=== PATIENT | female | born 1930 | race Caucasian/White ===

== ENCOUNTER 2017-06-10 19:25 | Emergency (ER) | payer MEDICARE, OTHER ==
--- NOTE | 2017-06-10 19:43 | EDM.PDOC ---
ED HPI GENERAL MEDICAL PROBLEM - General Chief Complaint: Cardiovascular Problem Stated Complaint: WEAKNESS Time Seen by Provider: 06/10/17 19:30 Source of Information: Reports: Patient, Family History Limitations: Reports: No Limitations - History of Present Illness INITIAL COMMENTS - FREE TEXT/NARRATIVE: Radha Ricci is a patient of Dr Real, and had her BP meds updated 2 mos ago including Valsartan 160/12.5, Dyazide 25, and Bystolic 5 mg qd. She has not been checking BPs at home, and decided to come to [facility] ED for a BP check: 194/70 , VR 60. She is asx, reports occasional ankle swelling, but no chest pain, SOB, dizziness, lt headiness, palpitations or GI upset. She is reportedly med compliant. - Related Data Allergies Allergy/AdvReac Type Severity Reaction Status Date / Time Penicillins Allergy Hives Verified 06/10/17 19:35 Home Meds: Home Meds Digoxin 250 mcg PO DAILY 06/10/17 [History] Nebivolol [Bystolic] 5 mg PO DAILY 06/10/17 [History] Triamterene/Hydrochlorothiazid [Triamterene-HCTZ 37.5-25 MG] 1 each PO DAILY [History] Valsartan/Hydrochlorothiazide [Valsartan-Hctz 160-12.5 mg Tab] 1 tab PO DAILY [History] Past Medical History Cardiovascular History: Reports: Hypertension ED ROS GENERAL - Review of Systems Review Of Systems: ROS reveals no pertinent complaints other than HPI. ED EXAM, GENERAL - Physical Exam Exam: See Below Exam Limited By: No Limitations General Appearance: Alert, WD/WN, No Apparent Distress Eye Exam: Bilateral Eye: Normal Inspection, PERRL Ears: Normal External Exam Nose: Normal Inspection Throat/Mouth: Normal Inspection Head: Normocephalic Neck: Normal Inspection, Supple Respiratory/Chest: Lungs Clear, Normal Breath Sounds Cardiovascular: Regular Rate, Rhythm, No Edema, No Murmur GI/Abdominal: Normal Bowel Sounds, Soft, Non-Tender, No Organomegaly Back Exam: Normal Inspection Extremities: Normal Inspection, Normal Range of Motion Neurological: Alert, Oriented, CN II-XII Intact, Normal Cognition, No Motor/ Sensory Deficits Psychiatric: Normal Affect, Normal Mood Skin Exam: Warm, Dry, Intact, Normal Color Lymphatic: No Adenopathy Course - Vital Signs Text/Narrative:: Follow up BPs: R 171/86, 174/84; L 167/85; 154/77. She remained asx during ED observation. Last Recorded V/S: Last Vital Signs Temp 36.6 C 06/10/17 19:25 Pulse 95 06/10/17 19:25 Resp 20 06/10/17 19:25 BP 171/86 H 06/10/17 20:00 Pulse Ox 99 06/10/17 19:25 Departure - Departure Time of Disposition: 20:38 Disposition: Home, Self-Care 01 Condition: Good Clinical Impression: Hypertension not at goal - Problem List & Annotations (1) Hypertension not at goal SNOMED Code(s): 53481937 Code(s): I10 - ESSENTIAL (PRIMARY) HYPERTENSION Status: Acute Current Visit: Yes Annotation/Comment:: Follow up with Dr Real this week. She was given BP readings for his office. - Problem List Review Problem List Initiated/Reviewed/Updated: Yes - Assessment/Plan Plan: Obtain BP cuff device for home monitoring.
[2017-06-10 21:26] VITALS: BP 175/88
== END 2017-06-10 20:58 | disposition home or self-care (01) ==
LOC: FB.ED 19:25
DX: I10 Essential (primary) hypertension (principal); Z88.0 Allergy status to penicillin; Z79.899 Other long term (current) drug therapy
CPT/HCPCS: 99282; 99283

== ENCOUNTER 2017-06-11 02:55 | Observation (INO) | payer MEDICARE, OTHER ==
[2017-06-11] MEDS ORDERED: Ondansetron 4 MG/2 ML SDV IVPUSH ONE (03:42)
--- NOTE | 2017-06-11 03:47 | EDM.PDOC ---
ED HPI GENERAL MEDICAL PROBLEM - General Chief Complaint: General Stated Complaint: WEAKNESS AND DIZZINESS Time Seen by Provider: 06/11/17 03:25 Source of Information: Reports: Patient, Old Records History Limitations: Reports: No Limitations - History of Present Illness INITIAL COMMENTS - FREE TEXT/NARRATIVE: Radha returns to [facility] ED with sxs of dizziness i.e. nausea and vomiting over the past hour. Sxs are reported as spinning when the eyes are closed. There is no ear pain, loss of hearing, chest pain, SOB, palpitations, or abdominal pain. She was treated for an external ear infection earlier this month with otic gtts , but those sxs have since resolved. Her BP 192/84, VR 70. - Related Data Allergies Allergy/AdvReac Type Severity Reaction Status Date / Time Penicillins Allergy Hives Verified 06/11/17 03:06 Home Meds: Home Meds Digoxin 250 mcg PO DAILY 06/10/17 [History] Nebivolol [Bystolic] 5 mg PO DAILY 06/10/17 [History] Triamterene/Hydrochlorothiazid [Triamterene-HCTZ 37.5-25 MG] 1 each PO DAILY [History] Valsartan/Hydrochlorothiazide [Valsartan-Hctz 160-12.5 mg Tab] 1 tab PO DAILY [History] Meclizine [Antivert] 25 mg PO TID PRN #15 tab.chew 06/11/17 [Rx] Past Medical History Cardiovascular History: Reports: Hypertension Other Cardiovascular History: rapid heart 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: Social & Family History - Family History Family Medical History: Unobtainable - Tobacco Use Smoking Status *Q: Never Smoker - Caffeine Use Caffeine Use: Reports: Coffee, Tea - Recreational Drug Use Recreational Drug Use: No ED ROS GENERAL - Review of Systems Review Of Systems: See Below Constitutional: Reports: Weakness, Decreased Appetite HEENT: Reports: Vertigo Respiratory: Reports: No Symptoms Cardiovascular: Reports: Blood Pressure Problem Endocrine: Reports: No Symptoms GI/Abdominal: Reports: Nausea, Vomiting : Reports: No Symptoms Musculoskeletal: Reports: No Symptoms Skin: Reports: No Symptoms Neurological: Reports: Dizziness Psychiatric: Reports: No Symptoms Hematologic/Lymphatic: Reports: No Symptoms Immunologic: Reports: No Symptoms ED EXAM, GENERAL - Physical Exam Exam: See Below Exam Limited By: No Limitations General Appearance: Alert, WD/WN, No Apparent Distress Eye Exam: Bilateral Eye: Normal Inspection, Nystagmus (nystagmus with fast component to the R), PERRL Ears: Normal External Exam, Normal Canal, Hearing Grossly Normal, Normal TMs Nose: Normal Inspection, Normal Mucosa Throat/Mouth: Normal Inspection, Normal Lips, Normal Teeth, Normal Gums, Normal Oropharynx, Normal Voice Head: Normocephalic Neck: Normal Inspection, Supple Respiratory/Chest: Lungs Clear, Normal Breath Sounds Cardiovascular: Regular Rate, Rhythm, No Murmur GI/Abdominal: Normal Bowel Sounds, Soft, Non-Tender, No Organomegaly, No Distention, No Mass Back Exam: Normal Inspection Extremities: Normal Inspection, Normal Range of Motion, Non-Tender Neurological: Alert, Oriented, CN II-XII Intact, Normal Reflexes, No Motor/ Sensory Deficits, Other (nystagmus to R) Psychiatric: Normal Affect, Normal Mood Skin Exam: Warm, Dry, Intact Lymphatic: No Adenopathy Course - Vital Signs Text/Narrative:: Following assession at the [facility] ED, vertigo seems apparent. I administered Zofran 8 mg IV, with minor improvement in sxs. I next administered Valium 1.0 mg IV for sxs relief. After 35 min without improvement, and nausea persisting, I administered valium 1 mg IV and Reglan 10 mg IV. With no additional improvement, I administered Antivert 25 mg po. Her sxs seemed to improve with this medication. Last Recorded V/S: Last Vital Signs Temp 36.7 C 06/11/17 02:55 Pulse 70 06/11/17 06:00 Resp 15 06/11/17 06:00 BP 163/72 H 06/11/17 06:00 Pulse Ox 96 06/11/17 06:00 - Orders/Labs/Meds Orders: Active Orders 24 hr Category Date Time Status DIGOXIN [CHEM] Stat Lab 06/11/17 06:22 Received Labs: Laboratory Tests 06/11/17 Range/Units 06:22 Sodium 138 (135-145) mmol/L Potassium 3.2 L (3.5-5.3) mmol/L Chloride 102 (100-110) mmol/L Carbon Dioxide 26 (23-29) mmol/L BUN 25 H (8-23) mg/dL Creatinine 0.8 (0.6-1.3) mg/dL Est Cr Clr Drug Dosing TNP Estimated GFR (MDRD) > 60 (>60) BUN/Creatinine Ratio 31.3 H (9-20) Glucose 151 H (80-116) mg/dL Calcium 9.3 (8.6-10.2) mg/dL Meds: Medications Discontinued Medications Generic Name Dose Route Start Last Admin Trade Name Freq PRN Reason Stop Dose Admin Diazepam 1 mg 06/11/17 04:29 06/11/17 04:47 Valium IVPUSH 06/11/17 04:30 1 mg ONETIME ONE Administration Diazepam 1 mg 06/11/17 05:33 06/11/17 05:43 Valium IVPUSH 06/11/17 05:34 1 mg ONETIME ONE Administration Meclizine HCl 25 mg 06/11/17 06:10 06/11/17 06:15 Antivert PO 06/11/17 06:11 25 mg ONETIME ONE Administration Metoclopramide HCl 10 mg 06/11/17 05:36 06/11/17 05:41 Reglan IVPUSH 06/11/17 05:37 10 mg ONETIME ONE Administration Ondansetron HCl 8 mg 06/11/17 03:42 06/11/17 03:57 Zofran IVPUSH 06/11/17 03:43 8 mg ONETIME ONE Administration Departure - Departure Time of Disposition: 06:53 Disposition: Home, Self-Care 01 Condition: Good Clinical Impression: Vertigo - Discharge Information Prescriptions: Meclizine [Antivert] 25 mg PO TID PRN #15 tab.chew PRN Reason: Dizziness Forms: ED Department Discharge - Problem List & Annotations (1) Vertigo SNOMED Code(s): 788635863 Code(s): R42 - DIZZINESS AND GIDDINESS Status: Acute Current Visit: Yes Annotation/Comment:: I dispensed Antivert 25 mg tid prn for vertigo. She is clinically improved, and BP also improved with medication. She will follow up with PCP later today. - Problem List Review Problem List Initiated/Reviewed/Updated: Yes - My Orders Last 24 Hours: My Active Orders 06/11/17 06:22 DIGOXIN [CHEM] Stat - Assessment/Plan Last 24 Hours: My Active Orders 06/11/17 06:22 DIGOXIN [CHEM] Stat Plan: Follow up with PCP.
[2017-06-11] MEDS ORDERED: Metoclopramide 10 MG/2 ML SDV IVPUSH ONE (05:36)
[2017-06-11] MEDS ORDERED: Meclizine 25 MG Tab PO ONE (06:10)
[2017-06-11] MEDS ORDERED: Potassium Chloride 20 MEQ Tab.ER PO ONE (07:39)
[2017-06-11] MEDS ORDERED: LORazepam 2 MG/ML MDV IVPUSH STA (08:27)
[2017-06-11] MEDS ORDERED: Sodium Chloride 0.9% 10 ML Syringe FLUSH PRN (08:36)
[2017-06-11] MEDS ORDERED: Gadobutrol 7.5 mMOL/7.5 ML SDV IV PRN (09:24)
[2017-06-11] MEDS: Sodium Chloride 0.9% 1,000 ML IV SCH ×2 (12:00→20:11)
[2017-06-11] MEDS ORDERED: Ondansetron 4 MG/2 ML SDV IVPUSH PRN (12:40)
--- NOTE | 2017-06-11 12:45 | PCM.HP ---
H&P History of Present Illness - General Date of Service: 06/11/17 Source of Information: Patient History Limitations: Reports: No Limitations - History of Present Illness Initial Comments - Free Text/Narative: This is a 86-year-old female patient with a history of vertigo. Started getting dizzy yesterday to the point where she couldn't hardly walk and she was vomiting. This went on for a while and then she called her son who brought her to the ER. They watch her and she was not getting better so they decided to admit her. They gave her Valium in ER. She denies fevers, chills, chest pain, palpitations, diplopia, blurred vision. She says the vertigo is worse when she looks to her right. She had an MRI in the ER and the results are not red at this time. Denies lateralizing weakness, dysphasia or aphasia Lower Back Pain Score (Numeric/FACES): 6 - Related Data Allergies/Adverse Reactions: Allergies Allergy/AdvReac Type Severity Reaction Status Date / Time Penicillins Allergy Hives Verified 06/11/17 03:06 Home Medications: Home Meds Digoxin 250 mcg PO DAILY 06/10/17 [History] Nebivolol [Bystolic] 5 mg PO DAILY 06/10/17 [History] Triamterene/Hydrochlorothiazid [Triamterene-HCTZ 37.5-25 MG] 1 each PO DAILY [History] Valsartan/Hydrochlorothiazide [Valsartan-Hctz 160-12.5 mg Tab] 1 tab PO DAILY [History] Meclizine [Antivert] 25 mg PO TID PRN #15 tab.chew 06/11/17 [Rx] Past Medical History HEENT History: Reports: Cataract Other HEENT History: BILATERAL PHACO IOL Cardiovascular History: Reports: Hypertension Other Cardiovascular History: rapid heart beat Respiratory History: Reports: None Gastrointestinal History: Reports: None 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 OB/BYN History: PARA IV AB II Musculoskeletal History: Reports: Back Pain, Chronic, Neck Pain, Chronic Neurological History: Reports: None Psychiatric History: Reports: None Endocrine/Metabolic History: Reports: None Hematologic History: Reports: None Immunologic History: Reports: None Oncologic (Cancer) History: Reports: None Dermatologic History: Reports: None - Infectious Disease History Infectious Disease History: Reports: Chicken Pox, Measles, Mumps, Rubella - Past Surgical History Head Surgeries/Procedures: Reports: None HEENT Surgical History: Reports: Eye Surgery Cardiovascular Surgical History: Reports: None Respiratory Surgical History: Reports: None GI Surgical History: Reports: None Female Surgical History: Reports: D&C Other Female Surgeries/Procedures: D&C AFTER MISCARRIAGES X2 Endocrine Surgical History: Reports: None Neurological Surgical History: Reports: None Musculoskeletal Surgical History: Reports: None Oncologic Surgical History: Reports: None Dermatological Surgical History: Reports: None Social & Family History - Family History Family Medical History: Noncontributory - Tobacco Use Smoking Status *Q: Never Smoker Second Hand Smoke Exposure: No - Caffeine Use Caffeine Use: Reports: Coffee, Tea - Recreational Drug Use Recreational Drug Use: No H&P Review of Systems - Review of Systems: Review Of Systems: See Below General: Reports: Weakness HEENT: Reports: No Symptoms Pulmonary: Reports: No Symptoms Cardiovascular: Reports: No Symptoms Gastrointestinal: Reports: Nausea, Vomiting Genitourinary: Reports: No Symptoms Musculoskeletal: Reports: No Symptoms Skin: Reports: No Symptoms Psychiatric: Reports: No Symptoms Neurological: Reports: Dizziness Hematologic/Lymphatic: Reports: No Symptoms Immunologic: Reports: No Symptoms Exam - Exam Exam: See Below - Vital Signs Vital Signs: Last Vital Signs Temp 97.8 F 06/11/17 10:49 Pulse 67 06/11/17 06:58 Resp 18 06/11/17 10:49 BP 154/77 H 06/11/17 10:49 Pulse Ox 96 06/11/17 10:49 Weight: 151 lb - Exam General: Alert, Oriented, Cooperative HEENT: Hearing Intact, Posterior Pharynx Clear, Pupils Equal, Pupils Reactive, TMs Clear, Rhinitis, Other (Nystagmus) Neck: Supple, Trachea Midline Lungs: Clear to Auscultation Cardiovascular: Regular Rate, Regular Rhythm, Normal S1, Normal S2 GI/Abdominal Exam: Normal Bowel Sounds, Soft, Non-Tender, No Organomegaly, No Distention, No Abnormal Bruit, No Mass Back Exam: Normal Inspection, Full Range of Motion Extremities: Normal Inspection, Normal Range of Motion, Non-Tender, No Pedal Edema, Normal Capillary Refill Skin: Warm, Dry, Intact Neurological: Cranial Nerves Intact, Strength Equal Bilateral, Normal Speech, Normal Tone Neuro Extensive - Mental Status: Alert, Oriented x3, Normal Cognition, Memory Intact Neuro Extensive - Motor, Sensory, Reflexes: Other (Gait not tested) Psychiatric: Alert, Normal Affect, Normal Mood - Patient Data Result Diagrams: 06/11/17 06:22 06/11/17 06:22 *Q Meaningful Use (ADM) - VTE *Q VTE Criteria *Q: - Stroke *Q Stroke Criteria *Q: - AMI *Q AMI Criteria *Q: - Problem List (1) Dehydration SNOMED Code(s): 69373158 ICD Code: E86.0 - DEHYDRATION Status: Acute Current Visit: Yes (2) Vertigo SNOMED Code(s): 404571310 ICD Code: R42 - DIZZINESS AND GIDDINESS Status: Acute Current Visit: Yes Problem Details: I dispensed Antivert 25 mg tid prn for vertigo. She is clinically improved, and BP also improved with medication. She will follow up with PCP later today. Problem List Initiated/Reviewed/Updated: Yes Orders Last 24hrs: Active Orders 24 hr Category Date Time Status Up With Assistance [RC] ASDIRECTED Care 06/11/17 12:38 Ordered Meclizine [Antivert] Med 06/11/17 12:38 Ordered 25 mg PO Q6H PRN Ondansetron [Zofran] Med 06/11/17 12:40 Ordered 4 mg IVPUSH Q6H PRN Medication Orders Sodium Chloride (Normal Saline) 1,000 mls @ 125 mls/hr IV ASDIRECTED KAMILA Meclizine HCl (Antivert) 25 mg PO Q6H PRN PRN Reason: Dizzy Sodium Chloride (Saline Flush) 10 ml FLUSH ASDIRECTED PRN PRN Reason: Keep Vein Open Last Admin: 06/11/17 08:37 Dose: 10 ml Assessment/Plan Comment:: Admit. She wants to be a focal. 2. IV fluids and antinausea medicine was Zofran. 3. Meclizine 25 mg every 6 hours for the vertigo 4. Wait for MRI result. 5. Regular diet. 6. Up with assist. 7. Hold medications for now.
[2017-06-11] MEDS: Meclizine 25 MG Tab PO PRN (14:24)
[2017-06-11] MEDS: Potassium Chloride 20 MEQ Tab.ER PO SCH (20:08)
[2017-06-12] MEDS: Sodium Chloride 0.9% 1,000 ML IV SCH (04:22)
--- NOTE | 2017-06-12 07:48 | PCM.PN ---
- General Info Date of Service: 06/12/17 Admission Dx/Problem (Free Text): Patient states her dizziness and nausea are gone. She's been up and has no problems with coronation. - Patient Data Vitals - Most Recent: Last Vital Signs Temp 98.5 F 06/12/17 05:40 Pulse 62 06/12/17 05:40 Resp 16 06/12/17 05:40 BP 158/61 H 06/12/17 05:40 Pulse Ox 96 06/12/17 05:40 Weight - Most Recent: 151 lb I&O - Last 24 Hours: Intake & Output 06/11/17 06/12/17 06/12/17 22:59 06:59 14:59 Intake Total 1250 Balance 1250 Lab Results Last 24 Hours: Laboratory Results - last 24 hr 06/11/17 Range/Units 20:25 Urine Color Yellow (YELLOW) Urine Appearance Slightly cloudy (CLEAR) Urine pH 5.0 (5.0-6.5) Ur Specific [place] 1.020 (1.010-1.025) Urine Protein Negative (NEGATIVE) mg/dL Urine Glucose (UA) Normal (NEGATIVE) mg/dL Urine Ketones 15 H (NEGATIVE) mg/dL Urine Occult Blood Negative (NEGATIVE) Urine Nitrite Negative (NEGATIVE) Urine Bilirubin Negative (NEGATIVE) Urine Urobilinogen Normal (NEGATIVE) mg/dL Ur Leukocyte Esterase Negative (NEGATIVE) Urine RBC 0-5 (0) Urine WBC 0-5 (0) Ur Squamous Epith Cells Occasional (NS,R,O) Urine Bacteria Rare H (NS) Urine Mucus Moderate H (NS) Med Orders - Current: Current Medications Sodium Chloride (Normal Saline) 1,000 mls @ 125 mls/hr IV ASDIRECTED ON LICENSE OF [facility] Last Admin: 06/12/17 04:22 Dose: 125 mls/hr Meclizine HCl (Antivert) 25 mg PO Q6H PRN PRN Reason: Dizzy Last Admin: 06/11/17 14:24 Dose: 25 mg Ondansetron HCl (Zofran) 4 mg IVPUSH Q6H PRN PRN Reason: Nausea/Vomiting Potassium Chloride (Klor-Con M20) 20 meq PO BIDMEALS ON LICENSE OF [facility] Last Admin: 06/11/17 20:08 Dose: 20 meq Sodium Chloride (Saline Flush) 10 ml FLUSH ASDIRECTED PRN PRN Reason: Keep Vein Open Last Admin: 06/11/17 08:37 Dose: 10 ml Discontinued Medications Diazepam (Valium) 1 mg IVPUSH ONETIME ONE Stop: 06/11/17 04:30 Last Admin: 06/11/17 04:47 Dose: 1 mg Diazepam (Valium) 1 mg IVPUSH ONETIME ONE Stop: 06/11/17 05:34 Last Admin: 06/11/17 05:43 Dose: 1 mg Gadobutrol (Gadavist) 7 ml IV . DIRECTED PRN PRN Reason: RADIOLOGY EXAM Stop: 06/11/17 09:25 Last Admin: 06/11/17 09:25 Dose: 7 ml Lorazepam (Ativan) 1 mg IVPUSH ONETIME STA Stop: 06/11/17 08:28 Last Admin: 06/11/17 08:35 Dose: 1 mg Meclizine HCl (Antivert) 25 mg PO ONETIME ONE Stop: 06/11/17 06:11 Last Admin: 06/11/17 06:15 Dose: 25 mg Metoclopramide HCl (Reglan) 10 mg IVPUSH ONETIME ONE Stop: 06/11/17 05:37 Last Admin: 06/11/17 05:41 Dose: 10 mg Ondansetron HCl (Zofran) 8 mg IVPUSH ONETIME ONE Stop: 06/11/17 03:43 Last Admin: 06/11/17 03:57 Dose: 8 mg Potassium Chloride (Klor-Con M20) 40 meq PO ONETIME ONE Stop: 06/11/17 07:40 Last Admin: 06/11/17 08:03 Dose: 40 meq - Exam HEENT: Other (No nystagmus) Lungs: Normal Respiratory Effort Extremities: Normal Inspection, No Pedal Edema - Problem List & Annotations (1) Dehydration SNOMED Code(s): 73207545 Code(s): E86.0 - DEHYDRATION Status: Acute Current Visit: Yes (2) Vertigo SNOMED Code(s): 428198051 Code(s): R42 - DIZZINESS AND GIDDINESS Status: Acute Current Visit: Yes Annotation/Comment:: I dispensed Antivert 25 mg tid prn for vertigo. She is clinically improved, and BP also improved with medication. She will follow up with PCP later today. - Problem List Review Problem List Initiated/Reviewed/Updated: Yes - My Orders Last 24 Hours: My Active Orders 06/11/17 12:38 Up With Assistance [RC] ASDIRECTED Meclizine [Antivert] 25 mg PO Q6H PRN 06/11/17 12:40 Ondansetron [Zofran] 4 mg IVPUSH Q6H PRN 06/11/17 18:08 Consult to Physical Therapy [PT Evaluation and Treatment] [CONS] Routine 06/11/17 18:30 Potassium Chloride [Klor-Con M20] 20 meq PO BIDMEALS 06/11/17 Dinner Regular Diet [DIET] - Plan Plan:: Discharge to home. I offered home health and she deferred.
--- NOTE | 2017-06-12 07:53 | PCM.DCSUM1 ---
Discharge Summary - Hospital Course Free Text/Narrative:: Hospital course-patient was given Valium in the ER. Sent over for IV fluids, observation. I placed her on Zofran and meclizine. By the afternoon later her nausea was gone. By the morning her vertigo had completely resolved. I did order PT but they did not have time to see her and her symptoms resolved so discharge her to home on her regular medications. She has meclizine ordered already. I'll add on Zofran. Brief History: This is a 86-year-old female patient with a history of vertigo. Started getting dizzy yesterday to the point where she couldn't hardly walk and she was vomiting. This went on for a while and then she called her son who brought her to the ER. They watch her and she was not getting better so they decided to admit her. They gave her Valium in ER. She denies fevers, chills, chest pain, palpitations, diplopia, blurred vision. She says the vertigo is worse when she looks to her right. She had an MRI in the ER and the results are not red at this time. Denies lateralizing weakness, dysphasia or aphasia - Discharge Data Discharge Date: 06/12/17 Discharge Disposition: Home, Self-Care 01 Condition: Good - Discharge Diagnosis/Problem(s) (1) Dehydration SNOMED Code(s): 45921181 ICD Code: E86.0 - DEHYDRATION Status: Acute Current Visit: Yes (2) Vertigo SNOMED Code(s): 385406087 ICD Code: R42 - DIZZINESS AND GIDDINESS Status: Acute Current Visit: Yes Problem Details: I dispensed Antivert 25 mg tid prn for vertigo. She is clinically improved, and BP also improved with medication. She will follow up with PCP later today. - Patient Summary/Data Consults: Consultations 06/11/17 18:08 Consult to Physical Therapy [PT Evaluation and Treatment] [CONS] Routine Please Evaluate and Treat. PT Reason for Consult: Strengthening This query below is only for informational purposes and is not editable. Admission Diagnosis/Problem: Vertigo - Patient Instructions Diet: Regular Diet as Tolerated Activity: As Tolerated Driving: May Drive Today Showering/Bathing: May Shower Notify Provider of: Fever, Nausea and/or Vomiting Other/Special Instructions: 1. Recheck with Dr. Rae in 7-10 days. - Discharge Plan Prescriptions/Med Rec: Meclizine [Antivert] 25 mg PO TID PRN #15 tab.chew PRN Reason: Dizziness Ondansetron HCl [Zofran] 4 mg PO Q6HR PRN #30 tablet PRN Reason: Nausea Home Medications: Home Meds Digoxin 250 mcg PO DAILY 06/10/17 [History] Nebivolol [Bystolic] 5 mg PO DAILY 06/10/17 [History] Triamterene/Hydrochlorothiazid [Triamterene-HCTZ 37.5-25 MG] 1 each PO DAILY [History] Valsartan/Hydrochlorothiazide [Valsartan-Hctz 160-12.5 mg Tab] 1 tab PO DAILY [History] Meclizine [Antivert] 25 mg PO TID PRN #15 tab.chew 06/11/17 [Rx] Ondansetron HCl [Zofran] 4 mg PO Q6HR PRN #30 tablet 06/12/17 [Rx] Patient Handouts: Vertigo, [id number] Forms: ED Department Discharge Referrals: Bruno Mandujano MD [Primary Care Provider] - - Patient Data Vitals - Most Recent: Last Vital Signs Temp 98.5 F 06/12/17 05:40 Pulse 62 06/12/17 05:40 Resp 16 06/12/17 05:40 BP 158/61 H 06/12/17 05:40 Pulse Ox 96 06/12/17 05:40 Weight - Most Recent: 151 lb I&O - Last 24 hours: Intake & Output 06/11/17 06/12/17 06/12/17 22:59 06:59 14:59 Intake Total 1250 Balance 1250 Lab Results - Last 24 hrs: Laboratory Results - last 24 hr 06/11/17 Range/Units 20:25 Urine Color Yellow (YELLOW) Urine Appearance Slightly cloudy (CLEAR) Urine pH 5.0 (5.0-6.5) Ur Specific [place] 1.020 (1.010-1.025) Urine Protein Negative (NEGATIVE) mg/dL Urine Glucose (UA) Normal (NEGATIVE) mg/dL Urine Ketones 15 H (NEGATIVE) mg/dL Urine Occult Blood Negative (NEGATIVE) Urine Nitrite Negative (NEGATIVE) Urine Bilirubin Negative (NEGATIVE) Urine Urobilinogen Normal (NEGATIVE) mg/dL Ur Leukocyte Esterase Negative (NEGATIVE) Urine RBC 0-5 (0) Urine WBC 0-5 (0) Ur Squamous Epith Cells Occasional (NS,R,O) Urine Bacteria Rare H (NS) Urine Mucus Moderate H (NS) Med Orders - Current: Current Medications Sodium Chloride (Normal Saline) 1,000 mls @ 125 mls/hr IV ASDIRECTED [facility] Last Admin: 06/12/17 04:22 Dose: 125 mls/hr Meclizine HCl (Antivert) 25 mg PO Q6H PRN PRN Reason: Dizzy Last Admin: 06/11/17 14:24 Dose: 25 mg Ondansetron HCl (Zofran) 4 mg IVPUSH Q6H PRN PRN Reason: Nausea/Vomiting Potassium Chloride (Klor-Con M20) 20 meq PO BIDMEALS [facility] Last Admin: 06/11/17 20:08 Dose: 20 meq Sodium Chloride (Saline Flush) 10 ml FLUSH ASDIRECTED PRN PRN Reason: Keep Vein Open Last Admin: 06/11/17 08:37 Dose: 10 ml Discontinued Medications Diazepam (Valium) 1 mg IVPUSH ONETIME ONE Stop: 06/11/17 04:30 Last Admin: 06/11/17 04:47 Dose: 1 mg Diazepam (Valium) 1 mg IVPUSH ONETIME ONE Stop: 06/11/17 05:34 Last Admin: 06/11/17 05:43 Dose: 1 mg Gadobutrol (Gadavist) 7 ml IV . DIRECTED PRN PRN Reason: RADIOLOGY EXAM Stop: 06/11/17 09:25 Last Admin: 06/11/17 09:25 Dose: 7 ml Lorazepam (Ativan) 1 mg IVPUSH ONETIME STA Stop: 06/11/17 08:28 Last Admin: 06/11/17 08:35 Dose: 1 mg Meclizine HCl (Antivert) 25 mg PO ONETIME ONE Stop: 06/11/17 06:11 Last Admin: 06/11/17 06:15 Dose: 25 mg Metoclopramide HCl (Reglan) 10 mg IVPUSH ONETIME ONE Stop: 06/11/17 05:37 Last Admin: 06/11/17 05:41 Dose: 10 mg Ondansetron HCl (Zofran) 8 mg IVPUSH ONETIME ONE Stop: 06/11/17 03:43 Last Admin: 06/11/17 03:57 Dose: 8 mg Potassium Chloride (Klor-Con M20) 40 meq PO ONETIME ONE Stop: 06/11/17 07:40 Last Admin: 06/11/17 08:03 Dose: 40 meq *Q Meaningful Use (DIS) - VTE *Q VTE Criteria *Q: - Stroke *Q Stroke Criteria *Q: - AMI *Q AMI Criteria *Q:
[2017-06-12] MEDS: Potassium Chloride 20 MEQ Tab.ER PO SCH (08:45)
[2017-06-12] MEDS: Meclizine 25 MG Tab PO PRN (09:20)
[2017-06-12 09:44] VITALS: BP 173/76
== END 2017-06-12 16:50 | disposition home or self-care (01) ==
LOC: FB.ED 02:55 → FB.MS 10:28 → INTOOBSV 10:37 → UNDOADMOB 10:37 → FB.MS 11:35
PROVIDERS: ADMIT Family Medicine; ATTEND Family Medicine
DX: E86.0 Dehydration (principal); R42 Dizziness and giddiness; I10 Essential (primary) hypertension; Z79.899 Other long term (current) drug therapy; Z88.0 Allergy status to penicillin; Z98.890 Other specified postprocedural states
CPT/HCPCS: 36415; 70544; 70553; 80048; 80162; 81001; 83880; 85025; 96361; 96374; 96375; 96376; 99217; 99219; 99285; A9270; A9585; G0378; J2060; J2405; J2765; J3360; J7040; J7050; 96365

== ENCOUNTER 2020-03-12 00:55 | Observation (INO) | payer MEDICARE, OTHER ==
[2020-03-12] MEDS ORDERED: Lidocaine 2% Viscous Solution 15 ML Cup PO ONE (01:20)
[2020-03-12] MEDS ORDERED: Ondansetron 4 MG/2 ML SDV IVPUSH ONE (01:32)
[2020-03-12] MEDS ORDERED: Meclizine 25 MG Tab PO ONE (01:32)
[2020-03-12] MEDS ORDERED: LORazepam 2 MG/ML SDV IVPUSH STA (01:32)
--- NOTE | 2020-03-12 01:54 | EDM.PDOC ---
ED HPI GENERAL MEDICAL PROBLEM - General Chief Complaint: General Stated Complaint: vertigo Time Seen by Provider: 03/12/20 01:20 Source of Information: Reports: Patient History Limitations: Reports: No Limitations - History of Present Illness INITIAL COMMENTS - FREE TEXT/NARRATIVE: Patient presented to the ED because of vertigo at 0030. She described it as spinning sensation when she turns her head sideways. She also c/o nausea but no vomiting. There is no associated neuro symptoms which include diplopia,blurry vision, slurred speech or any motor or sensory deficits. She has similar episode 10 years ago. She took meclizine 25 mg prior to the ED visit with mild relief. - Related Data Allergies Allergy/AdvReac Type Severity Reaction Status Date / Time Penicillins Allergy Hives Verified 06/11/17 03:06 Home Meds: Home Meds Digoxin 250 mcg PO DAILY 06/10/17 [History] Nebivolol [Bystolic] 5 mg PO DAILY 06/10/17 [History] Triamterene/Hydrochlorothiazid [Triamterene-HCTZ 37.5-25 MG] 1 each PO DAILY [History] Valsartan/Hydrochlorothiazide [Valsartan-Hctz 160-12.5 mg Tab] 1 tab PO DAILY [History] Meclizine [Antivert] 25 mg PO TID PRN #15 tab.chew 06/11/17 [Rx] ondansetron HCL [Zofran] 4 mg PO Q6HR PRN #30 tablet 06/12/17 [Rx] Past Medical History HEENT History: Reports: Cataract Other HEENT History: BILATERAL PHACO IOL Cardiovascular History: Reports: Hypertension Other Cardiovascular History: rapid heart beat Respiratory History: Reports: None Gastrointestinal History: Reports: None 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 HAND History: PARA IV AB II Musculoskeletal History: Reports: Back Pain, Chronic, Neck Pain, Chronic Neurological History: Reports: None Psychiatric History: Reports: None Endocrine/Metabolic History: Reports: None Hematologic History: Reports: None Immunologic History: Reports: None Oncologic (Cancer) History: Reports: None Dermatologic History: Reports: None - Infectious Disease History Infectious Disease History: Reports: Chicken Pox, Measles, Mumps, Rubella - Past Surgical History Head Surgeries/Procedures: Reports: None HEENT Surgical History: Reports: Eye Surgery Cardiovascular Surgical History: Reports: None Respiratory Surgical History: Reports: None GI Surgical History: Reports: None Female Surgical History: Reports: D&C Other Female Surgeries/Procedures: D&C AFTER MISCARRIAGES X2 Endocrine Surgical History: Reports: None Neurological Surgical History: Reports: None Musculoskeletal Surgical History: Reports: None Oncologic Surgical History: Reports: None Dermatological Surgical History: Reports: None Social & Family History - Family History Family Medical History: Noncontributory - Caffeine Use Caffeine Use: Reports: Coffee, Tea ED ROS GENERAL - Review of Systems Review Of Systems: See Below Constitutional: Reports: No Symptoms Respiratory: Reports: Cough Cardiovascular: Reports: No Symptoms Endocrine: Reports: No Symptoms GI/Abdominal: Reports: Nausea. Denies: Vomiting : Reports: No Symptoms Musculoskeletal: Reports: No Symptoms Skin: Reports: No Symptoms ED EXAM, GENERAL - Physical Exam Exam: See Below Exam Limited By: No Limitations General Appearance: Alert, No Apparent Distress Ears: Normal External Exam Nose: Normal Inspection, Normal Mucosa Throat/Mouth: Normal Inspection, Normal Lips Head: Atraumatic, Normocephalic Neck: Normal Inspection, Supple, Non-Tender Respiratory/Chest: No Respiratory Distress, Lungs Clear, Normal Breath Sounds Cardiovascular: Normal Peripheral Pulses, Regular Rate, Rhythm, No JVD GI/Abdominal: Normal Bowel Sounds, Soft, Non-Tender Back Exam: Normal Inspection, Full Range of Motion Course - Vital Signs Text/Narrative:: Labs/EKG was discussed with patient and verbalized full understanding zofran 4 mg IV x1 ativan 0.5 mg IV x1 meclizine 26 mg po x1 scopolamine patch There is mild improvement of her vertigo with the above treatment but her nausea resolved with zofran IV Last Recorded V/S: Last Vital Signs Temp 36.9 C 03/12/20 01:20 Pulse 69 03/12/20 01:20 Resp 16 03/12/20 01:20 BP 164/76 H 03/12/20 01:20 Pulse Ox 96 03/12/20 01:20 - Orders/Labs/Meds Orders: Active Orders 24 hr Category Date Time Status EKG Documentation Completion [RC] ASDIRECTED Care 03/12/20 01:16 Active EKG 12 Lead [EK] Routine Ther 03/12/20 01:16 Ordered Labs: Laboratory Tests 03/12/20 03/12/2003/12/20 Range/Units 01:15 01:15 01:15 WBC 11.1 (4.5-12.0) X10-3/uL RBC 4.63 (3.23-5.20) x10(6)uL Hgb 13.8 (11.5-15.5) g/dL Hct 41.3 (30.0-51.3) % MCV 89.3 (80-96) fL MCH 29.8 (27.7-33.6) pg MCHC 33.4 (32.2-35.4) g/dL RDW 13.3 (11.5-15.5) % Plt Count 328 (125-369) X10(3)uL MPV 8.3 (7.4-10.4) fL Neut % (Auto) 78.9 (46-82) % Lymph % (Auto) 15.4 (13-37) % [place] % (Auto) 4.4 (4-12) % Eos % (Auto) 1 (1.0-5.0) % Baso % (Auto) 1 (0-2) % Neut # (Auto) 8.7 H (1.6-8.3) # Lymph # (Auto) 1.7 (0.6-5.0) # [place] # (Auto) 0.5 (0.0-1.3) # Eos # (Auto) 0.1 (0.0-0.8) # Baso # (Auto) 0.1 (0.0-0.2) # Sodium 141 (135-145) mmol/L Potassium 4.0 (3.5-5.3) mmol/L Chloride 104 (100-110) mmol/L Carbon Dioxide 26 (21-32) mmol/L BUN 31 H (7-18) mg/dL Creatinine 1.2 H (0.55-1.02) mg/dL Est Cr Clr Drug Dosing TNP Estimated GFR (MDRD) 42 L (>60) BUN/Creatinine Ratio 25.8 H (9-20) Glucose 124 H (80-116) mg/dL Calcium 8.8 (8.6-10.2) mg/dL Total Bilirubin 0.5 (0.1-1.3) mg/dL AST 14 (5-25) IU/L ALT 18 (12-36) U/L Alkaline Phosphatase 79 (56-112) IU/L Troponin I 6.5 (4.0-60.3) pg/mL Total Protein 7.1 (6.0-8.0) g/dL Albumin 3.2 (3.2-4.6) g/dL Globulin 3.9 g/dL Albumin/Globulin Ratio 0.8 Meds: Medications Discontinued Medications Generic Name Dose Route Start Last Admin Trade Name [place] PRN Reason Stop Dose Admin Lidocaine HCl 15 ml 03/12/20 01:20 Xylocaine 2% Viscous PO 03/12/20 01:21 ONETIME ONE Lorazepam 0.5 mg 03/12/20 01:32 03/12/20 01:45 Ativan IVPUSH 03/12/20 01:33 0.5 mg NOW STA Administration Meclizine HCl 25 mg 03/12/20 01:32 03/12/20 01:50 Antivert PO 03/12/20 01:33 25 mg ONETIME ONE Administration Ondansetron HCl 4 mg 03/12/20 01:32 03/12/20 01:50 Zofran IVPUSH 03/12/20 01:33 4 mg ONETIME ONE Administration Scopolamine 1.5 mg 03/12/20 01:59 03/12/20 02:08 Transderm-Scop TRDERM 03/12/20 02:00 1.5 mg NOW STA Administration Departure - Departure Time of Disposition: 03:10 Disposition: Home, Self-Care 01 Condition: Good Clinical Impression: BPV (benign positional vertigo) - Discharge Information Forms: ED Department Discharge Sepsis Event Note - Evaluation Sepsis Screening Result: No Definite Risk - Focused Exam Vital Signs: Vital Signs Temp Pulse Resp BP Pulse Ox 03/12/20 01:20 36.9 C 69 16 164/76 H 96 Date Exam was Performed: 03/12/20 Time Exam was Performed: 03:06 - My Orders Last 24 Hours: My Active Orders 03/12/20 01:16 EKG Documentation Completion [RC] ASDIRECTED EKG 12 Lead [EK] Routine - Assessment/Plan Last 24 Hours: My Active Orders 03/12/20 01:16 EKG Documentation Completion [RC] ASDIRECTED EKG 12 Lead [EK] Routine
[2020-03-12] MEDS ORDERED: Scopolamine 1.5 MG Transdermal Patch TRDERM STA (01:59)
[2020-03-12] MEDS ORDERED: Ondansetron 4 MG/2 ML SDV IV PRN (03:12)
[2020-03-12] MEDS ORDERED: LORazepam 0.5 MG Tab PO PRN (03:12)
[2020-03-12] MEDS: Meclizine 25 MG Tab PO SCH ×2 (04:10→11:01)
[2020-03-12] MEDS ORDERED: Hydrochlorothiazide 12.5 MG Cap PO SCH (09:00)
[2020-03-12] MEDS ORDERED: Hydrochlorothiazide/Triamterene 25-37.5 Tab PO SCH (09:00)
[2020-03-12] MEDS ORDERED: Valsartan 160 MG Tab PO SCH (09:00)
[2020-03-12] MEDS ORDERED: Digoxin 250 MCG Tab PO SCH (09:00)
--- NOTE | 2020-03-12 09:17 | PCM.HP.2 ---
H&P History of Present Illness - General Date of Service: 03/12/20 Admit Problem/Dx: Admission Diagnosis/Problem Admission Diagnosis/Problem Vertigo Source of Information: Patient History Limitations: Reports: No Limitations - History of Present Illness Initial Comments - Free Text/Narative: 89 yo admitted last night due to vertigo. She complained of vertigo for a few hours duration,associated with nausea,and anxiety. This has now improved. She feels ready to go home. - Related Data Allergies/Adverse Reactions: Allergies Allergy/AdvReac Type Severity Reaction Status Date / Time Penicillins Allergy Hives Verified 06/11/17 03:06 Home Medications: Home Meds Nebivolol [Bystolic] 5 mg PO DAILY 06/10/17 [History] Losartan [Cozaar] 100 mg PO DAILY 03/12/20 [History] Spironolactone [Aldactone] 25 mg PO DAILY 03/12/20 [History] Past Medical History HEENT History: Reports: Cataract Other HEENT History: Bilateral phaco IOL. Cardiovascular History: Reports: Hypertension Other Cardiovascular History: Rapid heart beat. 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 Dermatologic History: Reports: None - Infectious Disease History Infectious Disease History: Reports: Chicken Pox Other Infectious Disease History: States she had measles as a child, doesn't recall which type. - Past Surgical History Head Surgeries/Procedures: Reports: None HEENT Surgical History: Reports: Eye Surgery GI Surgical History: Reports: None Female Surgical History: Reports: D&C Other Female Surgeries/Procedures: D & C after miscarriage. Social & Family History - Family History Family Medical History: Noncontributory - Tobacco Use Smoking Status *Q: Never Smoker - Caffeine Use Caffeine Use: Reports: Coffee, Tea - Recreational Drug Use Recreational Drug Use: No H&P Review of Systems - Review of Systems: Review Of Systems: Comprehensive ROS is negative, except as noted in HPI. Exam - Exam Exam: See Below - Vital Signs Vital Signs: Last Vital Signs Temp 98 F 03/12/20 03:30 Pulse 76 03/12/20 03:30 Resp 16 03/12/20 03:30 BP 136/51 L 03/12/20 03:30 Pulse Ox 95 03/12/20 03:30 Weight: 74.253 kg - Exam General: Alert, Oriented, 4 HEENT: PERRLA, Hearing Intact, Mucosa Moist & [place], Nares Patent, Normal Nasal Septum, Posterior Pharynx Clear, Conjunctiva Clear, EOMI, EACs Clear, TMs Clear Neck: Supple, Trachea Midline, 2 Lungs: Clear to Auscultation, Normal Respiratory Effort Cardiovascular: Regular Rate, Regular Rhythm GI/Abdominal Exam: Normal Bowel Sounds, Soft, Non-Tender, No Organomegaly, No Distention, No Abnormal Bruit, No Mass, Pelvis Stable (Female) Exam: Deferred Rectal (Female) Exam: Deferred Back Exam: Normal Inspection, Full Range of Motion, NT Extremities: Normal Inspection, Normal Range of Motion, Non-Tender, No Pedal Edema, Normal Capillary Refill Skin: Warm, Dry, Intact Neurological: Cranial Nerves Intact, Reflexes Equal Bilateral Neuro Extensive - Mental Status: Alert, Oriented x3, Normal Mood/Affect, Normal Cognition Neuro Extensive - Motor, Sensory, Reflexes: CN II-XII Intact, Normal Gait, Normal Reflexes Psychiatric: Alert, Normal Affect, Normal Mood - Patient Data Lab Results Last 24 hrs: Laboratory Results - last 24 hr 03/12/20 03/12/20 03/12/20 Range/Units 01:15 01:15 01:15 WBC 11.1 (4.5-12.0) X10-3/uL RBC 4.63 (3.23-5.20) x10(6)uL Hgb 13.8 (11.5-15.5) g/dL Hct 41.3 (30.0-51.3) % MCV 89.3 (80-96) fL MCH 29.8 (27.7-33.6) pg MCHC 33.4 (32.2-35.4) g/dL RDW 13.3 (11.5-15.5) % Plt Count 328 (125-369) X10(3)uL MPV 8.3 (7.4-10.4) fL Neut % (Auto) 78.9 (46-82) % Lymph % (Auto) 15.4 (13-37) % [place] % (Auto) 4.4 (4-12) % Eos % (Auto) 1 (1.0-5.0) % Baso % (Auto) 1 (0-2) % Neut # (Auto) 8.7 H (1.6-8.3) # Lymph # (Auto) 1.7 (0.6-5.0) # [place] # (Auto) 0.5 (0.0-1.3) # Eos # (Auto) 0.1 (0.0-0.8) # Baso # (Auto) 0.1 (0.0-0.2) # Sodium 141 (135-145) mmol/L Potassium 4.0 (3.5-5.3) mmol/L Chloride 104 (100-110) mmol/L Carbon Dioxide 26 (21-32) mmol/L BUN 31 H (7-18) mg/dL Creatinine 1.2 H (0.55-1.02) mg/dL Est Cr Clr Drug Dosing TNP Estimated GFR (MDRD) 42 L (>60) BUN/Creatinine Ratio 25.8 H (9-20) Glucose 124 H (80-116) mg/dL Calcium 8.8 (8.6-10.2) mg/dL Total Bilirubin 0.5 (0.1-1.3) mg/dL AST 14 (5-25) IU/L ALT 18 (12-36) U/L Alkaline Phosphatase 79 (56-112) IU/L Troponin I 6.5 (4.0-60.3) pg/mL Total Protein 7.1 (6.0-8.0) g/dL Albumin 3.2 (3.2-4.6) g/dL Globulin 3.9 g/dL Albumin/Globulin Ratio 0.8 Result Diagrams: 03/12/20 01:15 03/12/20 01:15 Sepsis Event Note - Evaluation Sepsis Screening Result: No Definite Risk - Focused Exam Vital Signs: Vital Signs Temp Pulse Pulse Resp BP Pulse Ox 03/12/20 03:30 98 F 76 16 136/51 L 95 03/12/20 01:20 98.5 F 69 16 164/76 H 96 Date Exam was Performed: 03/12/20 Time Exam was Performed: 09:16 - Problem List (1) BPV (benign positional vertigo) SNOMED Code(s): 990530476 ICD Code: H81.10 - BENIGN PAROXYSMAL VERTIGO, UNSPECIFIED EAR Status: Acute Current Visit: Yes Problem List Initiated/Reviewed/Updated: Yes Orders Last 24hrs: Active Orders 24 hr Category Date Time Status Patient Status [ADT] Routine ADT 03/12/20 03:13 Active Oxygen Therapy [RC] PRN Care 03/12/20 03:13 Active Up With Assistance [RC] PRN Care 03/12/20 03:12 Active Vital Signs [RC] 00,04,08,12,16,20 Care 03/12/20 03:13 Active Heart Healthy Diet [DIET] Diet 03/12/20 Breakfast Active Digoxin [Lanoxin] Med 03/12/20 09:00 Active 250 mcg PO DAILY HCTZ/Triamterene [Maxzide 25-37.5 MG] Med 03/12/20 09:00 Active 1 each PO DAILY LORazepam [Ativan] Med 03/12/20 03:12 Active 0.5 mg PO Q8H PRN Meclizine [Antivert] Med 03/12/20 03:15 Active 25 mg PO Q6H Nebivolol [Bystolic] Med 03/12/20 09:00 Active 5 mg PO DAILY Ondansetron [Zofran] Med 03/12/20 03:12 Active 4 mg IV Q4H PRN Valsartan [Diovan] Med 03/12/20 09:00 Active 160 mg PO DAILY hydroCHLOROthiazide Med 03/12/20 09:00 Active 12.5 mg PO DAILY Resuscitation Status Routine Resus Stat 03/12/20 03:12 Ordered EKG 12 Lead [EK] Routine Ther 03/12/20 01:16 Ordered Medication Orders Digoxin (Lanoxin) 250 mcg PO DAILY [facility] Hydrochlorothiazide (Hydrochlorothiazide) 12.5 mg PO DAILY [facility] Lorazepam (Ativan) 0.5 mg PO Q8H PRN PRN Reason: anxiety/vertigo Meclizine HCl (Antivert) 25 mg PO Q6H [facility] Last Admin: 03/12/20 04:10 Dose: 25 mg Nebivolol (Bystolic) 5 mg PO DAILY [facility] Ondansetron HCl (Zofran) 4 mg IV Q4H PRN PRN Reason: Nausea/Vomiting Triamterene/HCTZ (Maxzide 25-37.5 Mg) 1 each PO DAILY [facility] Valsartan (Diovan) 160 mg PO DAILY [facility] Assessment/Plan Comment:: May DC home today. - Mortality Measure Prognosis:: Good
--- NOTE | 2020-03-12 09:31 | PCM.DCSUM1 ---
Discharge Summary - Hospital Course Free Text/Narrative:: Admitted for observation -and has improved. No more dizzy or nauseas - Discharge Data Discharge Date: 03/12/20 Discharge Disposition: Home, Self-Care 01 Condition: Good - Referral to Home Health Primary Care Physician: Bruno Mandujano MD - Discharge Diagnosis/Problem(s) (1) BPV (benign positional vertigo) SNOMED Code(s): 910191612 ICD Code: H81.10 - BENIGN PAROXYSMAL VERTIGO, UNSPECIFIED EAR Status: Acute Current Visit: Yes - Discharge Plan Home Medications: Home Meds Nebivolol [Bystolic] 5 mg PO DAILY 06/10/17 [History] Losartan [Cozaar] 100 mg PO DAILY 03/12/20 [History] Spironolactone [Aldactone] 25 mg PO DAILY 03/12/20 [History] Forms: ED Department Discharge Referrals: Bruno Mandujano MD [Primary Care Provider] - - Discharge Summary/Plan Comment DC Time >30 min.: Yes - General Info Date of Service: 03/12/20 Functional Status: Reports: Pain Controlled - Review of Systems General: Reports: No Symptoms HEENT: Reports: No Symptoms Pulmonary: Reports: No Symptoms Cardiovascular: Reports: No Symptoms - Patient Data Vitals - Most Recent: Last Vital Signs Temp 98 F 03/12/20 03:30 Pulse 76 03/12/20 03:30 Resp 16 03/12/20 03:30 BP 136/51 L 03/12/20 03:30 Pulse Ox 95 03/12/20 03:30 Weight - Most Recent: 74.253 kg I&O - Last 24 hours: Intake & Output 03/11/20 03/12/20 03/12/20 22:59 06:59 14:59 Intake Total 50 Output Total 0 Balance 50 Lab Results - Last 24 hrs: Laboratory Results - last 24 hr 03/12/20 03/12/20 03/12/20 Range/Units 01:15 01:15 01:15 WBC 11.1 (4.5-12.0) X10-3/uL RBC 4.63 (3.23-5.20) x10(6)uL Hgb 13.8 (11.5-15.5) g/dL Hct 41.3 (30.0-51.3) % MCV 89.3 (80-96) fL MCH 29.8 (27.7-33.6) pg MCHC 33.4 (32.2-35.4) g/dL RDW 13.3 (11.5-15.5) % Plt Count 328 (125-369) X10(3)uL MPV 8.3 (7.4-10.4) fL Neut % (Auto) 78.9 (46-82) % Lymph % (Auto) 15.4 (13-37) % [place] % (Auto) 4.4 (4-12) % Eos % (Auto) 1 (1.0-5.0) % Baso % (Auto) 1 (0-2) % Neut # (Auto) 8.7 H (1.6-8.3) # Lymph # (Auto) 1.7 (0.6-5.0) # [place] # (Auto) 0.5 (0.0-1.3) # Eos # (Auto) 0.1 (0.0-0.8) # Baso # (Auto) 0.1 (0.0-0.2) # Sodium 141 (135-145) mmol/L Potassium 4.0 (3.5-5.3) mmol/L Chloride 104 (100-110) mmol/L Carbon Dioxide 26 (21-32) mmol/L BUN 31 H (7-18) mg/dL Creatinine 1.2 H (0.55-1.02) mg/dL Est Cr Clr Drug Dosing TNP Estimated GFR (MDRD) 42 L (>60) BUN/Creatinine Ratio 25.8 H (9-20) Glucose 124 H (80-116) mg/dL Calcium 8.8 (8.6-10.2) mg/dL Total Bilirubin 0.5 (0.1-1.3) mg/dL AST 14 (5-25) IU/L ALT 18 (12-36) U/L Alkaline Phosphatase 79 (56-112) IU/L Troponin I 6.5 (4.0-60.3) pg/mL Total Protein 7.1 (6.0-8.0) g/dL Albumin 3.2 (3.2-4.6) g/dL Globulin 3.9 g/dL Albumin/Globulin Ratio 0.8 Med Orders - Current: Current Medications Digoxin (Lanoxin) 250 mcg PO DAILY [facility] Hydrochlorothiazide (Hydrochlorothiazide) 12.5 mg PO DAILY [facility] Lorazepam (Ativan) 0.5 mg PO Q8H PRN PRN Reason: anxiety/vertigo Meclizine HCl (Antivert) 25 mg PO Q6H [facility] Last Admin: 03/12/20 04:10 Dose: 25 mg Nebivolol (Bystolic) 5 mg PO DAILY [facility] Ondansetron HCl (Zofran) 4 mg IV Q4H PRN PRN Reason: Nausea/Vomiting Triamterene/HCTZ (Maxzide 25-37.5 Mg) 1 each PO DAILY [facility] Valsartan (Diovan) 160 mg PO DAILY [facility] Discontinued Medications Lidocaine HCl (Xylocaine 2% Viscous) 15 ml PO ONETIME ONE Stop: 03/12/20 01:21 Lorazepam (Ativan) 0.5 mg IVPUSH NOW STA Stop: 03/12/20 01:33 Last Admin: 03/12/20 01:45 Dose: 0.5 mg Meclizine HCl (Antivert) 25 mg PO ONETIME ONE Stop: 03/12/20 01:33 Last Admin: 03/12/20 01:50 Dose: 25 mg Ondansetron HCl (Zofran) 4 mg IVPUSH ONETIME ONE Stop: 03/12/20 01:33 Last Admin: 03/12/20 01:50 Dose: 4 mg Scopolamine (Transderm-Scop) 1.5 mg TRDERM NOW STA Stop: 03/12/20 02:00 Last Admin: 03/12/20 02:08 Dose: 1.5 mg - Exam General: Reports: Alert, Oriented HEENT: Reports: Pupils Equal Neck: Reports: Supple Lungs: Reports: Clear to Auscultation Cardiovascular: Reports: Regular Rate Back Exam: Reports: Normal Inspection Extremities: Normal Inspection
[2020-03-12 10:58] VITALS: BP 141/80; PULSE 66
== END 2020-03-12 11:20 | disposition home or self-care (01) ==
LOC: FB.ED 00:55 → FB.MS 03:11
PROVIDERS: ADMIT Emergency Medicine; ATTEND Family Medicine
DX: H81.10 Benign paroxysmal vertigo, unspecified ear (principal); I10 Essential (primary) hypertension; Z88.0 Allergy status to penicillin; Z79.899 Other long term (current) drug therapy
CPT/HCPCS: 36415; 80053; 84484; 85025; 93005; 96374; 96375; 99283-25; A9270-GY; J2060; J2405

== ENCOUNTER 2020-09-16 14:32 | Emergency (ER) | payer MEDICARE, OTHER ==
[2020-09-16 15:10] VITALS: PULSE 66
--- NOTE | 2020-09-16 15:12 | EDM.PDOC ---
ED HPI GENERAL MEDICAL PROBLEM - General Stated Complaint: HIGH BLOOD PRESSURE Time Seen by Provider: 09/16/20 14:40 Source of Information: Reports: Patient History Limitations: Reports: No Limitations - History of Present Illness INITIAL COMMENTS - FREE TEXT/NARRATIVE: Patient presented to the ED from the walk in clinic because of an elevated BP and occasional dizziness. Her BP upon triage was normal,denies any headache,chest pain. 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 - Related Data Allergies Allergy/AdvReac Type Severity Reaction Status Date / Time Penicillins Allergy Hives Verified 09/16/20 14:52 Home Meds: Home Meds Nebivolol [Bystolic] 5 mg PO DAILY 06/10/17 [History] Losartan [Cozaar] 100 mg PO DAILY 03/12/20 [History] Spironolactone [Aldactone] 25 mg PO DAILY 03/12/20 [History] Meclizine [Antivert] 25 mg PO Q6H PRN #15 tab 09/16/20 [Rx] Meclizine [Antivert] 25 mg PO TID PRN 09/16/20 [History] Past Medical History HEENT History: Reports: Cataract Other HEENT History: Bilateral phaco IOL. Cardiovascular History: Reports: Hypertension Other Cardiovascular History: Rapid heart beat. Respiratory History: Reports: None Gastrointestinal History: Reports: None Genitourinary History: Reports: None [employer]ER History: Reports: Other [employer]ER History: V!, Para IV, AB II Musculoskeletal History: Reports: Back Pain, Chronic, Neck Pain, Chronic Neurological History: Reports: None Psychiatric History: Reports: None Endocrine/Metabolic History: Reports: None Hematologic History: Reports: None Immunologic History: Reports: None Oncologic (Cancer) History: Reports: Other (See Below) Other Oncologic History: Small area of skin cancer on nose, was removed. Dermatologic History: Reports: None - Infectious Disease History Infectious Disease History: Reports: Chicken Pox Other Infectious Disease History: States she had measles as a child, doesn't recall which type. - Past Surgical History Head Surgeries/Procedures: Reports: None HEENT Surgical History: Reports: Eye Surgery GI Surgical History: Reports: None Female Surgical History: Reports: D&C Other Female Surgeries/Procedures: D & C after miscarriage. Social & Family History - Family History Family Medical History: Noncontributory - Caffeine Use Caffeine Use: Reports: Coffee, Tea ED ROS GENERAL - Review of Systems Review Of Systems: See Below Constitutional: Reports: No Symptoms HEENT: Reports: No Symptoms Respiratory: Reports: No Symptoms Cardiovascular: Reports: No Symptoms Endocrine: Reports: No Symptoms GI/Abdominal: Reports: No Symptoms : Reports: No Symptoms Musculoskeletal: Reports: No Symptoms Skin: Reports: No Symptoms Neurological: Reports: Dizziness Psychiatric: Reports: No Symptoms ED EXAM, GENERAL - Physical Exam Exam: See Below Exam Limited By: No Limitations General Appearance: Alert, No Apparent Distress Eye Exam: Bilateral Eye: PERRL Ears: Normal External Exam, Normal Canal Nose: Normal Inspection, Normal Mucosa Throat/Mouth: Normal Inspection, Normal Lips, Normal Teeth Head: Atraumatic, Normocephalic Neck: Normal Inspection, Supple, Non-Tender, Full Range of Motion Respiratory/Chest: No Respiratory Distress, Lungs Clear, Normal Breath Sounds Cardiovascular: Normal Peripheral Pulses, Regular Rate, Rhythm, No Edema, No Gallop GI/Abdominal: Normal Bowel Sounds, Soft, Non-Tender, No Organomegaly Back Exam: Normal Inspection, Full Range of Motion Extremities: Normal Inspection, Normal Range of Motion Neurological: Alert, Oriented, CN II-XII Intact, Normal Cognition, Normal Reflexes Psychiatric: Normal Affect, Normal Mood Course - Vital Signs Text/Narrative:: reassurance,start on meclizine Last Recorded V/S: Last Vital Signs Temp 36.7 C 09/16/20 15:30 Pulse 66 09/16/20 15:30 Resp 17 09/16/20 15:30 BP 158/67 H 09/16/20 15:30 Pulse Ox 98 09/16/20 15:30 Departure - Departure Time of Disposition: 15:15 Disposition: Home, Self-Care 01 Condition: Good Clinical Impression: BPV (benign positional vertigo) - Discharge Information Prescriptions: Meclizine [Antivert] 25 mg PO Q6H PRN #15 tab PRN Reason: vertigo Instructions: Benign Positional Vertigo Referrals: Bruno Mandujano MD [Primary Care Provider] - Forms: ED Department Discharge Additional Instructions: Please read discharge instruction on BPQ Take meclizine 25 mg every 6 hours as needed for dizziness Follow up as needed
[2020-09-16 19:22] VITALS: BP 158/67
== END 2020-09-16 15:35 | disposition home or self-care (01) ==
LOC: FB.ED 14:32
DX: H81.10 Benign paroxysmal vertigo, unspecified ear (principal); I10 Essential (primary) hypertension; Z88.0 Allergy status to penicillin; Z79.899 Other long term (current) drug therapy
CPT/HCPCS: 99283